=== PATIENT | male | born 1980 | race Caucasian/White ===

== ENCOUNTER → 2023-06-23 08:30 | Outpatient (CLI) | payer OTHER, SELFPAY ==
[2023-06-23 09:21] LABS: Add Manual Diff / Slide Review NO; Basophils Absolute Auto 0 /uL (0-100); Basophils Percent Auto 0.6 % (0-2); Eosinophils Absolute Auto 200 /uL (0-450); Eosinophils Percent Auto 3.4 % (2-4); Hematocrit 44.2 % (41-53); Hemoglobin 15.5 g/dL (13.5-17.5); Lymphocytes Absolute Auto 1600 /uL (1100-4500); Lymphocytes Percent Auto 33.3 % (25-40); Mean Corpuscular Hemoglobin 30.5 PG (26-34); Monocytes Absolute Auto 400 /uL (0-900); Monocytes Percent Auto 7.7 % (3-14); Neutrophils Absolute Auto 2700 /uL (1500-7000); Platelet Count 181 X10^3/uL (150-400); Red Blood Cell Count 5.07 X10^6/uL (4.5-5.9); Red Cell Distribution Width 13.2 % (11.6-14.8); White Blood Cell Count 4.9 X10^3/uL (4.5-11.0)
[2023-06-23 09:32] LABS: Hemoglobin A1C% w Est Avg Glu 5.2 % (4.0-6.0)
[2023-06-23 09:44] LABS: Alanine Aminotransferase 31 IU/L (<50); Albumin 3.9 g/dL (3.5-5.0); Albumin Globulin Ratio 1.4 (1.0-2.8); Alkaline Phosphatase 70 U/L (38-126); Aspartate Aminotransferase 34 IU/L (17-59); BUN Creatinine Ratio 12.5 (6-22); Bilirubin Total 0.6 mg/dL (0.2-1.3); Blood Urea Nitrogen 9 mg/dL (9-20); Calcium 9.5 mg/dL (8.4-10.2); Carbon Dioxide 30 mmol/L (22-32); Chloride 103 mmol/L (98-107); Cholesterol 162 mg/dL (140-199); Estimated Glomerular Filt Rate > 60 mL/min (>60); Globulin 2.7 g/dL (1.7-4.1); Glucose 95 mg/dL (70-100); HDL Cholesterol 28 mg/dL (40-60); HEMOLYSIS < 15 (0-50); LDL Cholesterol Calculated 86 mg/dL (<100); Sodium 138 mmol/L (137-145); Total Protein 6.6 g/dL (6.3-8.2); Triglycerides 240 mg/dL (35-150)
[2023-06-23 09:46] LABS: Iron 91 ug/dL (49-181)
[2023-06-23 10:01] LABS: Vitamin D 25 Hydroxy (D3) 14.4 ng/mL (30.0-100.0)
[2023-06-23 10:12] LABS: TSH w/ Reflex to FT4 4.07 uIU/mL (0.47-4.68)
[2023-06-23 10:30] LABS: Vitamin B12 319 pg/mL (239-931)
== END ==
PROVIDERS: PCP Family Medicine; Referring Provider Family Medicine; Visit Provider Family Medicine
DX: L72.3 Sebaceous cyst (principal); Z78.9 Other specified health status; E66.9 Obesity, unspecified
CPT/HCPCS: 36415; 80053; 80061; 82306; 82607; 83036; 83540; 84443; 85025